=== PATIENT | male | born 1945 | race Caucasian/White ===

== ENCOUNTER 2018-06-08 19:26 | Inpatient (IN) | payer MEDICARE, OTHER ==
[~2018-06-08] VITALS: Ht 170.2 cm; Wt 86.2 kg
[2018-06-08] MEDS: IPRATROPIUM BROMIDE (0.02%) 0.5MG/2.5ML NEB HHN STA ×2 (01:04→23:08)
[~2018-06-08 19:26] MED LIST: ALBU05 IH; ALBU90AE INH; ATOR10TA69 PO; FLOV44 INH; FLUT15.88 BOTHNSTRLS; IPRA4AER INH; LEVO100T9 PO; LOSA100T14 PO; METF-414 PO; MOME17SP9 BOTHNSTRLS; MONT10TA21 PO; THE3 PO
[2018-06-08 22:20] LABS: BASOPHILS % 0.1 % (0.0-2.0); EOSINOPHILS % 0.1 % (0.0-5.0); HEMATOCRIT. 42.9 % (42.0-52.0); HEMOGLOBIN. 14.7 g/dL (14.0-18.0); LYMPHOCYTES % 7.1 % (20.0-50.0); MEAN CORPUSCULAR HEMOGLOBIN 29.9 pg (28.0-32.0); MEAN CORPUSCULAR VOLUME 87.2 fL (80.0-94.0); MEAN PLATELET VOLUME 7.9 fl (7.4-10.4); MONOCYTES % 6.8 % (2.0-8.0); NEUTROPHILS % 85.9 % (40.0-76.0); PLATELET 313 x1000/uL (130-400); RED BLOOD CELL COUNT 4.92 mill/uL (4.7-6.1); RED CELL DISTRIBUTION WIDTH 16.5 % (11.6-14.6)
[2018-06-08] MEDS ORDERED: PREDNISONE 20MG TABLET PO STA (22:21)
[2018-06-08] MEDS ORDERED: ALBUTEROL (0.083%) 2.5MG/3ML NEB HHN STA (22:21)
[2018-06-08 22:26] LABS: CHLORIDE 96 mEq/L (98-107)
[2018-06-08 22:29] LABS: INR 1.1; PARTIAL THROMBOPLASTIN TIME 25.7 sec (23.4-31.0); PROTHROMBIN TIME 11.1 sec (9.1-11.1)
[2018-06-08] MEDS ORDERED: POTASSIUM CHLORIDE INJ 40 MEQ in DEXT 5% WATER 250 ML IV ONE (23:15)
[2018-06-08] MEDS ORDERED: PIPERACILLIN/TAZOBACTAM 3.375GM/50ML PREMIX IV ONE (23:15)
[2018-06-08] MEDS ORDERED: VANCOMYCIN 1 G PREMIX 200 ML IV SCH (23:15)
[2018-06-08] MEDS ORDERED: SODIUM CHLORIDE 0.9% 1000ML BAG (SEPSIS BOLUS) IV ONE (23:15)
[2018-06-08] MEDS ORDERED: AZITHROMYCIN 500 MG in DEXT 5% WATER 250 ML IV SCH (23:15)
[2018-06-09] MEDS: KCL 10MEQ/50ML PREMIX 50 ML IV SCH ×2 (05:49→09:56)
[2018-06-09] MEDS ORDERED: PIPERACILLIN/TAZ 3.375G PREMIX 50 ML IV ONE (06:30)
[2018-06-09] MEDS ORDERED: NITROGLYCERIN OINT 1GM/INCH UDPKT TD ONE (07:00)
[2018-06-09] MEDS ORDERED: ASPIRIN 325MG TABLET PO ONE (07:00)
[2018-06-09 10:39] VITALS: BP 106/62
[2018-06-09] MEDS ORDERED: LORAZEPAM 0.5MG TABLET PO PRN (11:15)
[2018-06-09] MEDS ORDERED: ONDANSETRON HCL 4MG/2ML INJ IV PRN (11:15)
[2018-06-09] MEDS ORDERED: IPRATROPIUM/ALBUTEROL 0.5-3(2.5)MG/3ML NEB INH PRN (11:15)
[2018-06-09] MEDS ORDERED: NA PHOS,M-B/NA PHOS,DI-BA ENEMA 118ML PR PRN (11:15)
[2018-06-09] MEDS ORDERED: DIPHENHYDRAMINE 50MG/ML VIAL IV PRN (11:15)
[2018-06-09] MEDS ORDERED: ACETAMINOPHEN 650MG SUPP PR PRN (11:15)
[2018-06-09] MEDS ORDERED: MAGNESIUM/ALUMINUM HYDROXIDE/SIMETHICONE 30ML UDC PO PRN (11:15)
[2018-06-09] MEDS ORDERED: GUAIFENESIN 200MG/10ML SUGAR FREE UDC PO PRN (11:15)
[2018-06-09] MEDS ORDERED: CLONIDINE 0.1MG TABLET PO PRN (11:15)
[2018-06-09] MEDS ORDERED: ACETAMINOPHEN 325MG TABLET PO PRN (11:15)
[2018-06-09 12:00] VITALS: BP_SYST 106; BP_SYST 137; BP_DIAS 62; BP_DIAS 76
[2018-06-09] MEDS ORDERED: IPRATROPIUM/ALBUTEROL 0.5-3(2.5)MG/3ML NEB HHN SCH ×2 (12:00→20:00)
[2018-06-09 13:08] LABS: BG BASE EXCESS -3.9 mmol/L (-2.0-2.0); BG CARBOXYHEMOGLOBIN 0.3 % (0.5-1.5); BG DEOXYHEMOGLOBIN 1.9 % (0.0-5.0); BG FRACTION INSPIRED OXYGEN 21; BG HCO3 ACT 17.8 mmol/L (22.0-26.0); BG METHEMOGLOBIN 0.2 % (0.0-1.5); BG OXYGEN SATURATION 98.1 % (92.0-98.5); BG OXYHEMOGLOBIN 97.6 % (94.0-97.0); BG PCO2 24.3 mmHg (35.0-45.0); BG PH 7.483 (7.350-7.450); BG PO2 105.2 mmHg (75.0-100.0); BG SAMPLE SITE RIGHT RADIAL; BG TOTAL HEMOGLOBIN 13.2 g/dL (12.0-18.0); BG VENT MODE ROOM AIR
[2018-06-09 13:36] LABS: HEMATOCRIT 39.5 % (42.0-52.0); HEMOGLOBIN 13.6 g/dL (14.0-18.0); MEAN CORPUSCULAR HEMOGLOBIN 30.1 pg (28.0-32.0); MEAN CORPUSCULAR VOLUME 87.4 fL (80.0-94.0); PLATELET 295 x1000/uL (130-400); RED BLOOD CELL COUNT 4.52 mill/uL (4.7-6.1); RED CELL DISTRIBUTION WIDTH 16.3 % (11.6-14.6)
[2018-06-09] MEDS: ENOXAPARIN 30MG/0.3ML SYR SUBCUT SCH ×2 (13:47→22:21)
[2018-06-09] MEDS: METHYLPREDNISOLONE SOD SUCC 40 MG/ML VIAL IV SCH ×2 (13:47→22:22)
[2018-06-09] MEDS: HYDROCODONE/ACETAMINOPHEN 5/325MG TABLET PO PRN (13:48)
[2018-06-09] MEDS ORDERED: DILTIAZEM HCL 30MG TABLET PO SCH (14:00)
[2018-06-09] MEDS ORDERED: INSULIN GLARGINE UD 100 UNITS/ML SYR SUBCUT NR (14:30)
[2018-06-09] MEDS ORDERED: LEVOTHYROXINE (15:10)
[2018-06-09] MEDS ORDERED: AMIT10TA6 PO (15:10)
[2018-06-09] MEDS ORDERED: PRED10TA23 PO (15:10)
[2018-06-09] MEDS ORDERED: INDO25CA18 PO (15:10)
[2018-06-09] MEDS ORDERED: GLIP10TA10 PO (15:10)
[2018-06-09] MEDS ORDERED: ATOR10TA PO (15:10)
[2018-06-09] MEDS ORDERED: ALBU90AE INH (15:10)
[2018-06-09] MEDS ORDERED: INSU100I28 SQ (15:10)
[2018-06-09 16:00] VITALS: BP 118/62
[2018-06-09 16:03] LABS: CHLORIDE 106 mEq/L (98-107)
[2018-06-09 16:14] LABS: *AMPHETAMINES SCREEN URINE NEGATIVE (NEGATIVE); CANNABINOID URINE SCREEN NEGATIVE (NEGATIVE); OPIATES URINE SCREEN NEGATIVE (NEGATIVE); PHENCYCLIDINE URINE SCREEN NEGATIVE (NEGATIVE)
[2018-06-09 16:16] LABS: *BARBITURATES SCREEN URINE NEGATIVE (NEGATIVE); *BENZODIAZEPINES SCREEN URINE NEGATIVE (NEGATIVE); *COCAINE SCREEN URINE NEGATIVE (NEGATIVE); METHADONE URINE SCREEN NEGATIVE (NEGATIVE)
[2018-06-09] MEDS: CEFTRIAXONE 1 G PREMIX 50 ML IV SCH (16:31)
[2018-06-09] MEDS: IPRATROPIUM/ALBUTEROL 0.5-3(2.5)MG/3ML NEB HHN SCH ×2 (16:48→20:05)
[2018-06-09] MEDS ORDERED: DILTIAZEM HCL 30MG TABLET PO NR (17:45)
[2018-06-09] MEDS ORDERED: DEXTROSE 50% WATER 50ML SYRINGE IV PRN (19:00)
[2018-06-09] MEDS: MONTELUKAST SODIUM 10MG TABLET PO SCH (19:04)
[2018-06-09] MEDS: SODIUM CHLORIDE 0.45% 1,000 ML IV SCH (19:05)
[2018-06-09 20:00] VITALS: BP 114/66
[2018-06-09] MEDS: BUDESONIDE 0.5MG/2ML NEB HHN SCH (20:05)
[2018-06-09] MEDS: BLOOD SUGAR DIAGNOSTIC STRIP TEST SCH (21:00)
[2018-06-09] MEDS: DILTIAZEM HCL 60MG TABLET PO SCH (22:22)
[2018-06-09] MEDS: FAMOTIDINE 20MG/2ML VIAL IV SCH (22:22)
[2018-06-09] MEDS: AZITHROMYCIN 500 MG in DEXT 5% WATER 250 ML IV SCH (22:23)
[2018-06-09] MEDS: INSULIN LISPRO 100 UNITS/ML SUBCUT SCH (22:24)
[2018-06-09 23:17] LABS: THEOPHYLLINE 29.4 ug/mL (10-20)
[2018-06-10] VITALS: BP 102/47
[2018-06-10] MEDS: IPRATROPIUM/ALBUTEROL 0.5-3(2.5)MG/3ML NEB HHN SCH ×6 (00:22→21:02)
[2018-06-10 04:00] VITALS: BP 132/65
[2018-06-10 05:36] LABS: CLARITY URINE CLEAR (CLEAR); COLOR URINE YELLOW (YELLOW); KETONES URINE NEGATIVE (NEGATIVE); LEUKOCYTE ESTERASE URINE NEGATIVE (NEGATIVE); NITRITE URINE NEGATIVE (NEGATIVE); OCCULT BLOOD URINE NEGATIVE (NEGATIVE); PH URINE 6.5 (4.5-8.0); PROTEIN URINE NEGATIVE (NEGATIVE); SPECIFIC GRAVITY URINE 1.005 (1.005-1.030); UROBILINOGEN URINE 0.2 E.U./dL (0.2-1.0)
[2018-06-10] MEDS: METHYLPREDNISOLONE SOD SUCC 40 MG/ML VIAL IV SCH ×2 (05:51→15:02)
[2018-06-10] MEDS: DILTIAZEM HCL 60MG TABLET PO SCH ×3 (05:52→21:45)
[2018-06-10] MEDS: BLOOD SUGAR DIAGNOSTIC STRIP TEST SCH ×4 (05:52→21:45)
[2018-06-10] MEDS: INSULIN LISPRO 100 UNITS/ML SUBCUT SCH ×4 (05:53→21:46)
[2018-06-10 07:20] LABS: HEMATOCRIT. 36.1 % (42.0-52.0); HEMOGLOBIN. 12.4 g/dL (14.0-18.0); MEAN CORPUSCULAR HEMOGLOBIN 30.2 pg (28.0-32.0); MEAN PLATELET VOLUME 8.3 fl (7.4-10.4); PLATELET 269 x1000/uL (130-400); RED CELL DISTRIBUTION WIDTH 16.6 % (11.6-14.6)
[2018-06-10] MEDS: BUDESONIDE 0.5MG/2ML NEB HHN SCH ×2 (07:38→21:02)
[2018-06-10 08:00] VITALS: BP 158/80
[2018-06-10] MEDS ORDERED: ASPIRIN 81MG EC TABLET PO SCH (09:00)
[2018-06-10] MEDS: LORATADINE 10MG TABLET PO SCH (09:51)
[2018-06-10] MEDS: FAMOTIDINE 20MG/2ML VIAL IV SCH ×2 (09:51→21:44)
[2018-06-10] MEDS: ENOXAPARIN 30MG/0.3ML SYR SUBCUT SCH (09:52)
[2018-06-10 11:01] LABS: CHLORIDE 106 mEq/L (98-107)
[2018-06-10 11:09] LABS: LDL CHOLESTEROL 76 mg/dL (5-100)
[2018-06-10 11:10] LABS: HDL CHOLESTEROL 85 mg/dL (40-59)
[2018-06-10 11:12] LABS: T4 FREE 1.21 ng/dL (0.76-1.46)
[2018-06-10 12:00] VITALS: BP 124/57
[2018-06-10] MEDS ORDERED: POTASSIUM CHLORIDE 20MEQ TABLET SR PO SCH (13:45)
[2018-06-10] MEDS ORDERED: MAGNESIUM 1 G PREMIX 100 ML IV SCH (13:45)
[2018-06-10] MEDS: CEFTRIAXONE 1 G PREMIX 50 ML IV SCH (14:15)
[2018-06-10 16:00] VITALS: BP 122/63
[2018-06-10] MEDS ORDERED: HYDRALAZINE 20MG/ML VIAL IV PRN (16:45)
[2018-06-10] MEDS ORDERED: INSULIN GLARGINE UD 100 UNITS/ML SYR SUBCUT NR (17:30)
[2018-06-10] MEDS: MONTELUKAST SODIUM 10MG TABLET PO SCH (17:47)
[2018-06-10 18:52] LABS: BG BASE EXCESS -2.9 mmol/L (-2.0-2.0); BG CARBOXYHEMOGLOBIN 0.5 % (0.5-1.5); BG DEOXYHEMOGLOBIN 3.1 % (0.0-5.0); BG FRACTION INSPIRED OXYGEN 21; BG METHEMOGLOBIN 0.4 % (0.0-1.5); BG OXYGEN SATURATION 96.9 % (92.0-98.5); BG PCO2 26.2 mmHg (35.0-45.0); BG PH 7.479 (7.350-7.450); BG PO2 83.3 mmHg (75.0-100.0); BG SAMPLE SITE RIGHT RADIAL; BG TOTAL HEMOGLOBIN 13.9 g/dL (12.0-18.0); BG VENT MODE ROOM AIR
[2018-06-10 19:43] LABS: PLATELET ESTIMATE NORMAL
[2018-06-10 20:00] VITALS: BP 129/68
[2018-06-10] MEDS: AZITHROMYCIN 500 MG in DEXT 5% WATER 250 ML IV SCH (21:45)
[2018-06-11] VITALS: BP 122/71
[2018-06-11] MEDS: ACETYLCYSTEINE 100MG/ML 10% VIAL 4ML INH SCH
[2018-06-11 04:00] VITALS: BP 105/56
[2018-06-11] MEDS: IPRATROPIUM/ALBUTEROL 0.5-3(2.5)MG/3ML NEB HHN SCH ×5 (05:36→21:00)
[2018-06-11] MEDS: DILTIAZEM HCL 60MG TABLET PO SCH ×3 (06:00→22:04)
[2018-06-11] MEDS: METHYLPREDNISOLONE SOD SUCC 40 MG/ML VIAL IV SCH ×2 (06:05→17:10)
[2018-06-11] MEDS: SODIUM CHLORIDE 0.45% 1,000 ML IV SCH ×2 (06:05→08:45)
[2018-06-11] MEDS: BLOOD SUGAR DIAGNOSTIC STRIP TEST SCH ×4 (06:05→21:01)
[2018-06-11] MEDS: INSULIN LISPRO 100 UNITS/ML SUBCUT SCH ×4 (06:06→21:09)
[2018-06-11 07:33] LABS: HEMATOCRIT. 38.4 % (42.0-52.0); HEMOGLOBIN. 12.8 g/dL (14.0-18.0); MEAN CORPUSCULAR HEMOGLOBIN 29.8 pg (28.0-32.0); MEAN PLATELET VOLUME 8.2 fl (7.4-10.4); PLATELET 249 x1000/uL (130-400); RED BLOOD CELL COUNT 4.31 mill/uL (4.7-6.1); RED CELL DISTRIBUTION WIDTH 16.6 % (11.6-14.6)
[2018-06-11 08:00] VITALS: BP 144/75
[2018-06-11] MEDS: FAMOTIDINE 20MG/2ML VIAL IV SCH ×2 (08:38→21:01)
[2018-06-11] MEDS: LORATADINE 10MG TABLET PO SCH (08:38)
[2018-06-11] MEDS: ENOXAPARIN 40MG/0.4ML SYR SUBCUT SCH (08:39)
[2018-06-11] MEDS: BUDESONIDE 0.5MG/2ML NEB HHN SCH ×2 (09:34→21:00)
[2018-06-11 09:40] LABS: CHLORIDE 105 mEq/L (98-107)
[2018-06-11 09:45] LABS: THEOPHYLLINE 7.2 ug/mL (10-20)
[2018-06-11 12:00] VITALS: BP 159/84
[2018-06-11] MEDS: CEFTRIAXONE 1 G PREMIX 50 ML IV SCH (13:16)
[2018-06-11] MEDS: GUAIFENESIN 600MG ER TABLET PO SCH ×2 (13:17→21:01)
[2018-06-11] MEDS ORDERED: INSULIN GLARGINE UD 100 UNITS/ML SYR SUBCUT NR (13:30)
[2018-06-11] MEDS ORDERED: VANCOMYCIN 1250MG in DEXTROSE 5% WATER 250ML IV SCH (13:30)
[2018-06-11 14:24] LABS: PLATELET ESTIMATE NORMAL
[2018-06-11 16:00] VITALS: BP 151/78
[2018-06-11] MEDS: MONTELUKAST SODIUM 10MG TABLET PO SCH (17:10)
[2018-06-11 20:00] VITALS: BP 127/66
[2018-06-11] MEDS: AZITHROMYCIN 500 MG in DEXT 5% WATER 250 ML IV SCH (22:05)
[2018-06-12] VITALS: BP 117/59
[2018-06-12] MEDS: BUDESONIDE 0.5MG/2ML NEB HHN SCH ×2 (01:33→08:14)
[2018-06-12] MEDS: ACETYLCYSTEINE 100MG/ML 10% VIAL 4ML INH SCH ×3 (01:33→16:00)
[2018-06-12] MEDS: IPRATROPIUM/ALBUTEROL 0.5-3(2.5)MG/3ML NEB HHN SCH ×6 (04:01→21:06)
[2018-06-12 04:30] VITALS: BP 125/55
[2018-06-12] MEDS: METHYLPREDNISOLONE SOD SUCC 40 MG/ML VIAL IV SCH ×2 (06:19→17:13)
[2018-06-12] MEDS: DILTIAZEM HCL 60MG TABLET PO SCH ×3 (06:19→21:06)
[2018-06-12] MEDS: BLOOD SUGAR DIAGNOSTIC STRIP TEST SCH ×4 (06:20→21:06)
[2018-06-12] MEDS: INSULIN LISPRO 100 UNITS/ML SUBCUT SCH ×4 (06:27→21:07)
[2018-06-12 07:19] LABS: HEMATOCRIT 35.6 % (42.0-52.0); MEAN CORPUSCULAR HEMOGLOBIN 29.7 pg (28.0-32.0); MEAN CORPUSCULAR VOLUME 88.5 fL (80.0-94.0); PLATELET 245 x1000/uL (130-400); RED BLOOD CELL COUNT 4.02 mill/uL (4.7-6.1); RED CELL DISTRIBUTION WIDTH 16.6 % (11.6-14.6)
[2018-06-12 08:00] VITALS: BP 132/70
[2018-06-12] MEDS: FAMOTIDINE 20MG/2ML VIAL IV SCH ×2 (09:09→21:06)
[2018-06-12] MEDS: GUAIFENESIN 600MG ER TABLET PO SCH ×2 (09:09→21:06)
[2018-06-12] MEDS: ENOXAPARIN 40MG/0.4ML SYR SUBCUT SCH (09:10)
[2018-06-12] MEDS: LORATADINE 10MG TABLET PO SCH (09:10)
[2018-06-12 11:11] LABS: CHLORIDE 107 mEq/L (98-107)
[2018-06-12 12:00] VITALS: BP 139/66
[2018-06-12] MEDS: DOCUSATE SODIUM 100MG CAPSULE PO PRN ×2 (12:12→23:38)
[2018-06-12] MEDS: CEFTRIAXONE 1 G PREMIX 50 ML IV SCH (12:12)
[2018-06-12] MEDS: HYDROCODONE/ACETAMINOPHEN 5/325MG TABLET PO PRN ×2 (15:37→23:38)
[2018-06-12 16:00] VITALS: BP 146/74
[2018-06-12] MEDS: MONTELUKAST SODIUM 10MG TABLET PO SCH (17:12)
[2018-06-12 20:00] VITALS: BP 146/80
[2018-06-12] MEDS: AZITHROMYCIN 500 MG in DEXT 5% WATER 250 ML IV SCH (23:36)
[2018-06-13] VITALS: BP 177/88
[2018-06-13] MEDS: IPRATROPIUM/ALBUTEROL 0.5-3(2.5)MG/3ML NEB HHN SCH ×6 (01:33→23:25)
[2018-06-13 04:00] VITALS: BP 124/63
[2018-06-13] MEDS: DILTIAZEM HCL 60MG TABLET PO SCH ×3 (06:24→20:59)
[2018-06-13] MEDS: BLOOD SUGAR DIAGNOSTIC STRIP TEST SCH ×4 (06:25→20:50)
[2018-06-13] MEDS: INSULIN LISPRO 100 UNITS/ML SUBCUT SCH ×4 (06:25→21:55)
[2018-06-13] MEDS: METHYLPREDNISOLONE SOD SUCC 40 MG/ML VIAL IV SCH ×2 (06:25→17:21)
[2018-06-13 07:25] LABS: HEMATOCRIT 35.6 % (42.0-52.0); HEMOGLOBIN 12.1 g/dL (14.0-18.0); MEAN CORPUSCULAR HEMOGLOBIN 30.1 pg (28.0-32.0); MEAN CORPUSCULAR VOLUME 88.4 fL (80.0-94.0); PLATELET 249 x1000/uL (130-400); RED BLOOD CELL COUNT 4.03 mill/uL (4.7-6.1); RED CELL DISTRIBUTION WIDTH 16.5 % (11.6-14.6)
[2018-06-13 07:45] LABS: CHLORIDE 105 mEq/L (98-107)
[2018-06-13 08:00] VITALS: BP 136/71
[2018-06-13] MEDS: ACETYLCYSTEINE 100MG/ML 10% VIAL 4ML INH SCH ×3 (08:51→23:26)
[2018-06-13] MEDS: LORATADINE 10MG TABLET PO SCH (09:42)
[2018-06-13] MEDS: FAMOTIDINE 20MG/2ML VIAL IV SCH ×2 (09:43→20:57)
[2018-06-13] MEDS: ENOXAPARIN 40MG/0.4ML SYR SUBCUT SCH (09:43)
[2018-06-13] MEDS: GUAIFENESIN 600MG ER TABLET PO SCH ×2 (09:43→20:56)
[2018-06-13] MEDS: CEFTRIAXONE 1 G PREMIX 50 ML IV SCH (13:00)
[2018-06-13] MEDS: MONTELUKAST SODIUM 10MG TABLET PO SCH (17:21)
[2018-06-13 20:00] VITALS: BP 173/78
[2018-06-13] MEDS: AZITHROMYCIN 500 MG in DEXT 5% WATER 250 ML IV SCH (22:41)
[2018-06-14] VITALS (7 sets, daily range): BP systolic 133–160; BP diastolic 65–91
[2018-06-14] MEDS: IPRATROPIUM/ALBUTEROL 0.5-3(2.5)MG/3ML NEB HHN SCH ×5 (02:54→20:41)
[2018-06-14] MEDS: BLOOD SUGAR DIAGNOSTIC STRIP TEST SCH (06:08)
[2018-06-14] MEDS: METHYLPREDNISOLONE SOD SUCC 40 MG/ML VIAL IV SCH ×2 (06:17→18:05)
[2018-06-14] MEDS: DILTIAZEM HCL 60MG TABLET PO SCH ×2 (06:17→16:25)
[2018-06-14] MEDS: INSULIN LISPRO 100 UNITS/ML SUBCUT SCH ×3 (07:06→18:08)
[2018-06-14] MEDS: ACETYLCYSTEINE 100MG/ML 10% VIAL 4ML INH SCH ×2 (09:02→16:46)
[2018-06-14] MEDS: ENOXAPARIN 40MG/0.4ML SYR SUBCUT SCH (09:48)
[2018-06-14] MEDS: LORATADINE 10MG TABLET PO SCH (09:48)
[2018-06-14] MEDS: GUAIFENESIN 600MG ER TABLET PO SCH (09:54)
[2018-06-14] MEDS: FAMOTIDINE 20MG/2ML VIAL IV SCH (09:54)
[2018-06-14] MEDS: CEFTRIAXONE 1 G PREMIX 50 ML IV SCH (13:36)
[2018-06-14] MEDS: MONTELUKAST SODIUM 10MG TABLET PO SCH (16:25)
== END 2018-06-14 21:12 | disposition home or self-care (01) | DRG 190 ==
LOC: ER 19:26 → 5WST 23:18 → ENRESERV 06-09 09:23
PROVIDERS: ADMIT Internal Medicine; ATTEND Internal Medicine
DX: J44.0 Chronic obstructive pulmonary disease with (acute) lower respiratory infection (principal); J18.9 Pneumonia, unspecified organism; J45.901 Unspecified asthma with (acute) exacerbation; E87.2 Acidosis; E66.2 Morbid (severe) obesity with alveolar hypoventilation; J44.1 Chronic obstructive pulmonary disease with (acute) exacerbation; E03.9 Hypothyroidism, unspecified; E11.65 Type 2 diabetes mellitus with hyperglycemia; E78.5 Hyperlipidemia, unspecified; E83.42 Hypomagnesemia; Z96.649 Presence of unspecified artificial hip joint; E86.0 Dehydration; T48.6X5A Adverse effect of antiasthmatics, initial encounter; E87.6 Hypokalemia; R07.89 Other chest pain; I11.0 Hypertensive heart disease with heart failure; I44.4 Left anterior fascicular block; I27.81 Cor pulmonale (chronic); I49.3 Ventricular premature depolarization; I50.9 Heart failure, unspecified; I80.8 Phlebitis and thrombophlebitis of other sites; Z79.84 Long term (current) use of oral hypoglycemic drugs; Z82.49 Family history of ischemic heart disease and other diseases of the circulatory system; Z83.3 Family history of diabetes mellitus; Z79.51 Long term (current) use of inhaled steroids; Z79.899 Other long term (current) drug therapy; Y92.89 Other specified places as the place of occurrence of the external cause; Z68.29 Body mass index [BMI] 29.0-29.9, adult
CPT/HCPCS: 36415; 36600; 71045; 73522; 80048; 80061; 80198; 80305; 82375; 82805; 82962; 83605; 83735; 83880; 84439; 84443; 84484; 85027; 87804; 93005; 93306; 93970; 93971; 94618; 94640; 96365; 97162; 99285; J0360; J0456; J0696; J1650; J1815; J2543; J2920; J3370; J3475; J3480; J3490; J7030; J7040; J7050; J7060; J7512; J7608; J7611; J7620; J7626